=== PATIENT | female | born 1945 | race Caucasian/White ===

== ENCOUNTER 2018-11-24 14:48 | Observation (INO) ==
[2018-11-24] MEDS ORDERED: ONDANSETRON 4 MG/2 ML VIAL IV STA (15:26)
[2018-11-24] MEDS ORDERED: SODIUM CHLORIDE 0.9% 1,000 ML IV STA (15:26)
[2018-11-24 16:15] LABS: Basophils % 0.4 % (0.0-0.8); Eosinophils # 0.4 10*3/uL (0.0-0.87); Eosinophils % 4.2 % (0.00-10.9); Hemoglobin 12.4 GM/DL (12.0-16.0); Immature Granulocytes % 0.5 %; Immature Granulocytes Absolute 0.05 #; Lymphocytes # 1.9 10*3/uL (1.4-4.0); Lymphocytes % 18.4 % (21.3-54.2); Mean Corpuscular Hemoglobin 28 PG (27-34); Mean Corpuscular Volume 89.9 FL (87-102); Monocytes % 9.1 % (1.7-12.7); Neutrophils # 7.1 10*3/uL (1.4-7.4); Neutrophils % 67.4 % (38.7-73.9); Platelet Count 248 T/CUMM (130-400); Red Blood Count 4.45 MC/CUMM (3.8-5.5); Red Cell Distribution Width 13.7 % (9.3-17.3); White Blood Count 10.5 T/CUMM (4-12)
[2018-11-24 16:24] LABS: INR 0.9; PT Patient Result 10.1 SECS; Partial Thromboplastin Time 25.6 SECS (0-40)
[2018-11-24 16:33] LABS: Alanine Aminotransferase 28 U/L (13-56); Albumin 3.8 G/DL (3.4-5.0); Alkaline Phosphatase 95 U/L (45-117); Aspartate Amino Transferase 24 U/L (0-37); Bilirubin,Total < 0.39 MG/DL (0.2-1.0); Blood Urea Nitrogen 22 MG/DL (7-18); Calcium 8.9 MG/DL (8.5-10.1); Glucose 103 MG/DL (74-106); Osmolality,Calculated 279.5 MOS/KG (273-304); Potassium 4.1 MMOL/L (3.5-5.1); Sodium 139 MMOL/L (136-145); Total Protein 7.6 G/DL (6.4-8.3)
[2018-11-24] MEDS ORDERED: ACETAMINOPHEN 325 MG TABLET PO PRN (22:01)
[2018-11-24] MEDS ORDERED: PANTOPRAZOLE 40 MG VIAL IV STA (22:01)
[2018-11-24] MEDS ORDERED: ONDANSETRON 4 MG/2 ML VIAL IV PRN (22:01)
[2018-11-24 22:32] LABS: Basophils % 0.3 % (0.0-0.8); Eosinophils # 0.6 10*3/uL (0.0-0.87); Eosinophils % 5.1 % (0.00-10.9); Hematocrit 38.1 VOL% (35.7-47.0); Hemoglobin 11.8 GM/DL (12.0-16.0); Immature Granulocytes % 0.4 %; Immature Granulocytes Absolute 0.04 #; Lymphocytes # 2.7 10*3/uL (1.4-4.0); Lymphocytes % 25.3 % (21.3-54.2); Mean Corpuscular Hemoglobin 28 PG (27-34); Mean Corpuscular Volume 90.5 FL (87-102); Mean Platelet Volume 8.9 FL (9.6-12.0); Monocytes # 0.9 10*3/uL (0.11-0.8); Monocytes % 8.2 % (1.7-12.7); Neutrophils # 6.5 10*3/uL (1.4-7.4); Neutrophils % 60.7 % (38.7-73.9); Platelet Count 220 T/CUMM (130-400); Red Blood Count 4.21 MC/CUMM (3.8-5.5); Red Cell Distribution Width 13.9 % (9.3-17.3); White Blood Count 10.8 T/CUMM (4-12)
[2018-11-24] MEDS ORDERED: DEXTROSE 5% NACL 0.45% 1,000 ML IV SCH (23:55)
[2018-11-25] MEDS: LABETALOL 100 MG TABLET PO SCH ×3 (06:08→20:26)
[2018-11-25] MEDS: DEXTROSE 5% NACL 0.45% 1,000 ML IV SCH ×2 (08:25→22:32)
[2018-11-25 08:51] LABS: Basophils % 0.4 % (0.0-0.8); Eosinophils # 0.5 10*3/uL (0.0-0.87); Eosinophils % 5.8 % (0.00-10.9); Hematocrit 34.3 VOL% (35.7-47.0); Hemoglobin 10.7 GM/DL (12.0-16.0); Immature Granulocytes % 0.2 %; Immature Granulocytes Absolute 0.02 #; Lymphocytes # 2.1 10*3/uL (1.4-4.0); Lymphocytes % 22.3 % (21.3-54.2); Mean Corpuscular HGB Conc 31.2 GM/DL (32-36); Mean Corpuscular Hemoglobin 28 PG (27-34); Mean Corpuscular Volume 89.6 FL (87-102); Mean Platelet Volume 9.2 FL (9.6-12.0); Monocytes # 0.8 10*3/uL (0.11-0.8); Monocytes % 8.5 % (1.7-12.7); Neutrophils # 5.8 10*3/uL (1.4-7.4); Neutrophils % 62.8 % (38.7-73.9); Platelet Count 216 T/CUMM (130-400); Red Blood Count 3.83 MC/CUMM (3.8-5.5); Red Cell Distribution Width 13.6 % (9.3-17.3); White Blood Count 9.3 T/CUMM (4-12)
[2018-11-25] MEDS ORDERED: cloNIDine 0.1 MG TABLET PO ONE (09:00)
[2018-11-25 09:20] LABS: Calcium 8.2 MG/DL (8.5-10.1); Osmolality,Calculated 278.5 MOS/KG (273-304); Potassium 3.8 MMOL/L (3.5-5.1)
[2018-11-25] MEDS: SODIUM CHLORIDE 0.9% 1,000 ML IV SCH ×3 (09:55→22:32)
[2018-11-25] MEDS ORDERED: MAGNESIUM SULF RIDER 2 GM in PREMIX 1 EACH IV ONE (10:30)
[2018-11-25] MEDS ORDERED: BISACODYL 5 MG TABLET PO ONE (16:00)
[2018-11-25] MEDS: PANTOPRAZOLE 40 MG TABLET PO SCH (16:35)
[2018-11-25] MEDS: OXYBUTYNIN 5 MG TABLET PO SCH (16:35)
[2018-11-25] MEDS: SERTRALINE 100 MG TABLET PO SCH (16:35)
[2018-11-25] MEDS: ARIPiprazole 10 MG TABLET PO SCH (16:35)
[2018-11-25] MEDS ORDERED: POLYETHYLENE GLYCOL POWDER 255 GM BOTTLE PO ONE (18:00)
[2018-11-25] MEDS ORDERED: cloNIDine 0.1 MG TABLET PO SCH (21:00)
[2018-11-26 05:08] LABS: PT Patient Result 10.7 SECS
[2018-11-26 05:18] LABS: Basophils % 0.5 % (0.0-0.8); Eosinophils # 0.5 10*3/uL (0.0-0.87); Hematocrit 30.8 VOL% (35.7-47.0); Hemoglobin 9.5 GM/DL (12.0-16.0); Immature Granulocytes % 0.3 %; Immature Granulocytes Absolute 0.02 #; Lymphocytes # 2.1 10*3/uL (1.4-4.0); Lymphocytes % 28.6 % (21.3-54.2); Mean Corpuscular HGB Conc 30.8 GM/DL (32-36); Mean Corpuscular Hemoglobin 28 PG (27-34); Mean Corpuscular Volume 90.6 FL (87-102); Mean Platelet Volume 9.5 FL (9.6-12.0); Monocytes # 0.7 10*3/uL (0.11-0.8); Monocytes % 8.9 % (1.7-12.7); Neutrophils % 54.7 % (38.7-73.9); Platelet Count 202 T/CUMM (130-400); Red Cell Distribution Width 13.6 % (9.3-17.3); White Blood Count 7.3 T/CUMM (4-12)
[2018-11-26 05:28] LABS: Bilirubin,Total 0.7 MG/DL (0.2-1.0); Calcium 7.4 MG/DL (8.5-10.1); Total Protein 6.3 G/DL (6.4-8.3)
[2018-11-26 05:29] LABS: Osmolality,Calculated 280.3 MOS/KG (273-304); Potassium 3.6 MMOL/L (3.5-5.1)
[2018-11-26] MEDS: LEVOTHYROXINE 150 MCG TABLET PO SCH ×2 (06:15→08:09)
[2018-11-26] MEDS: SERTRALINE 100 MG TABLET PO SCH (08:05)
[2018-11-26] MEDS: OXYBUTYNIN 5 MG TABLET PO SCH (08:07)
[2018-11-26] MEDS: PANTOPRAZOLE 40 MG TABLET PO SCH (08:08)
[2018-11-26] MEDS: ARIPiprazole 10 MG TABLET PO SCH (08:08)
[2018-11-26] MEDS: SODIUM CHLORIDE 0.9% 1,000 ML IV SCH ×2 (08:11→16:13)
[2018-11-26] MEDS ORDERED: LIDOCAINE 2% 5 ML VIAL ONE (09:00)
[2018-11-26] MEDS ORDERED: PROPOFOL 200 MG/20 ML VIAL IV ONE (09:00)
[2018-11-26] MEDS: LABETALOL 100 MG TABLET PO SCH ×2 (14:15→20:44)
[2018-11-27] MEDS: SODIUM CHLORIDE 0.9% 1,000 ML IV SCH ×2 (02:29→16:13)
[2018-11-27] MEDS: LEVOTHYROXINE 150 MCG TABLET PO SCH (06:05)
[2018-11-27 06:35] LABS: Calcium 7.3 MG/DL (8.5-10.1); Potassium 3.9 MMOL/L (3.5-5.1)
[2018-11-27 08:48] LABS: Hematocrit 31.9 VOL% (35.7-47.0); Hemoglobin 9.9 GM/DL (12.0-16.0)
[2018-11-27] MEDS: ARIPiprazole 10 MG TABLET PO SCH (08:48)
[2018-11-27] MEDS: PANTOPRAZOLE 40 MG TABLET PO SCH (08:48)
[2018-11-27] MEDS: SERTRALINE 100 MG TABLET PO SCH (08:48)
[2018-11-27] MEDS: LABETALOL 100 MG TABLET PO SCH (08:49)
[2018-11-27] MEDS: OXYBUTYNIN 5 MG TABLET PO SCH (08:50)
[2018-11-27] MEDS ORDERED: amLODIPine 5 MG TABLET PO SCH (09:00)
[2018-11-27 16:03] VITALS: BP 147/62
[2018-11-27] MEDS ORDERED: amLODIPine 10 MG TABLET PO SCH (16:51)
[2018-11-27] MEDS ORDERED: amLODIPine 5 MG TABLET PO ONE (17:07)
== END 2018-11-27 17:05 | disposition home or self-care (01) ==
LOC: N.ED 14:48 → N.EDINP 14:48 → N.2E 21:18
PROVIDERS: ADMIT Emergency Medicine; ATTEND Internal Medicine

== ENCOUNTER 2020-07-19 19:58 | Observation (INO) ==
[2020-07-19 20:21] LABS: Basophils % 0.4 % (0.0-0.8); Eosinophils # 0.2 10*3/uL (0.0-0.87); Eosinophils % 2.8 % (0.00-10.9); Hematocrit 35.9 VOL% (35.7-47.0); Hemoglobin 11.6 GM/DL (12.0-16.0); Immature Granulocytes % 0.2 %; Immature Granulocytes Absolute 0.02 #; Lymphocytes # 1.8 10*3/uL (1.4-4.0); Lymphocytes % 21.4 % (21.3-54.2); Mean Corpuscular HGB Conc 32.3 GM/DL (32-36); Mean Platelet Volume 9.1 FL (9.6-12.0); Monocytes % 7.6 % (1.7-12.7); Neutrophils % 67.6 % (38.7-73.9); Platelet Count 221 T/CUMM (130-400); Red Blood Count 4.08 MC/CUMM (3.8-5.5); Red Cell Distribution Width 13.1 % (9.3-17.3); White Blood Count 8.3 T/CUMM (4-12)
[2020-07-19 20:46] LABS: Alanine Aminotransferase 29 U/L (13-56); Albumin 3.7 G/DL (3.4-5.0); Alkaline Phosphatase 70 U/L (45-117); Aspartate Amino Transferase 37 U/L (0-37); Bilirubin,Total < 0.39 MG/DL (0.2-1.0); Blood Urea Nitrogen 22 MG/DL (7-18); Estimated Glom Filtration Rate 39 ML/MIN; Glucose 91 MG/DL (74-106); Total Protein 7.1 G/DL (6.4-8.3)
[2020-07-19] MEDS ORDERED: ONDANSETRON 4 MG/2 ML VIAL IV STA (21:05)
[2020-07-19] MEDS ORDERED: ASPIRIN 325 MG TABLET PO STA (21:05)
[2020-07-19] MEDS ORDERED: CLOPIDOGREL 75 MG TABLET PO STA (22:31)
[2020-07-19] MEDS ORDERED: GLUCAGON 1 MG VIAL IM PRN (22:58)
[2020-07-19] MEDS ORDERED: ACETAMINOPHEN 325 MG TABLET PO PRN (22:58)
[2020-07-19] MEDS ORDERED: ONDANSETRON 4 MG/2 ML VIAL IV PRN (22:58)
[2020-07-19] MEDS ORDERED: DEXTROSE 50% 25 GM/50 ML SYRINGE IV PRN ×2 (22:58→23:04)
[2020-07-19] MEDS ORDERED: MORPHINE 4 MG/1 ML VIAL IV PRN (22:58)
[2020-07-19] MEDS: SODIUM CHLORIDE 0.9% 1,000 ML IV SCH (23:30)
[2020-07-20] MEDS: INSULIN REGULAR 100 UNIT/ML SUBCUT SCH ×3 (00:13→12:20)
[2020-07-20 04:45] LABS: Basophils % 0.4 % (0.0-0.8); Eosinophils # 0.3 10*3/uL (0.0-0.87); Eosinophils % 3.9 % (0.00-10.9); Hematocrit 32.5 VOL% (35.7-47.0); Hemoglobin 10.6 GM/DL (12.0-16.0); Immature Granulocytes % 0.1 %; Immature Granulocytes Absolute 0.01 #; Lymphocytes # 1.9 10*3/uL (1.4-4.0); Lymphocytes % 27.5 % (21.3-54.2); Mean Corpuscular HGB Conc 32.6 GM/DL (32-36); Mean Corpuscular Volume 88.3 FL (87-102); Mean Platelet Volume 9.4 FL (9.6-12.0); Neutrophils % 59.1 % (38.7-73.9); Platelet Count 204 T/CUMM (130-400); Red Blood Count 3.68 MC/CUMM (3.8-5.5)
[2020-07-20 05:18] LABS: Albumin 3.4 G/DL (3.4-5.0); Bilirubin,Total 0.6 MG/DL (0.2-1.0); Calcium 9.1 MG/DL (8.5-10.1); Risk Ratio 5.13; Total Protein 6.4 G/DL (6.4-8.3); VLDL CHOLESTEROL 25.6 MG/DL
[2020-07-20] MEDS ORDERED: PANTOPRAZOLE 40 MG TABLET PO SCH (09:00)
[2020-07-20] MEDS ORDERED: DOCUSATE SODIUM 100 MG CAPSULE PO SCH (09:00)
[2020-07-20] MEDS ORDERED: CLOPIDOGREL 75 MG TABLET PO SCH (09:00)
[2020-07-20 09:02] LABS: Bilirubin,Urine Negative (Negative); Blood, Urine Negative (Negative); Glucose,Urine (UA) Negative (Negative); Ketones,Urine Negative (Negative); Mucus,Urine Occasional /LPF (Occasional); Nitrite,Urine Negative (Negative); Protein,Urine Negative; RBC,Urine <1 /HPF (0-4); Urine Appearance CLEAR (Clear); Urine Color Yellow (Yellow); Urine Specific Gravity 1.008 (1.001-1.035); Urine Urobilinogen < 2.0 EU/DL (0.2-1.0); WBC,Urine 1 /HPF (0-6)
[2020-07-20 11:40] LABS: Barbiturates Screen,Urine Negative (Negative); Benzodiazepines Screen,Urine Negative (Negative); Cannabinoid Screen,Urine Negative (Negative); Opiate Screen,Urine Negative (Negative); Phencyclidine Screen,Urine Negative (Negative)
[2020-07-20] MEDS ORDERED: LABETALOL 100 MG TABLET PO SCH (14:18)
[2020-07-20] MEDS ORDERED: cloNIDine 0.1 MG TABLET PO SCH (14:18)
[2020-07-20] MEDS ORDERED: LABETALOL 100 MG TABLET ONE (14:22)
[2020-07-20] MEDS ORDERED: cloNIDine 0.1 MG TABLET ONE (14:22)
[2020-07-20] MEDS: SODIUM CHLORIDE 0.9% 1,000 ML IV SCH (14:30)
[2020-07-20 17:07] VITALS: BP 183/70
== END 2020-07-20 17:01 | disposition home or self-care (01) ==
LOC: N.EDINP 19:58 → N.ED 19:58 → N.EDINP 07-20 17:00
PROVIDERS: ADMIT Internal Medicine; ATTEND Internal Medicine

== ENCOUNTER 2020-07-24 17:55 | Observation (INO) ==
[2020-07-24 18:43] LABS: Basophils % 0.5 % (0.0-0.8); Eosinophils # 0.1 10*3/uL (0.0-0.87); Eosinophils % 1.8 % (0.00-10.9); Hematocrit 45.2 VOL% (35.7-47.0); Hemoglobin 14.6 GM/DL (12.0-16.0); Immature Granulocytes % 0.3 %; Immature Granulocytes Absolute 0.01 #; Lymphocytes # 0.6 10*3/uL (1.4-4.0); Lymphocytes % 16.5 % (21.3-54.2); Mean Corpuscular HGB Conc 32.3 GM/DL (32-36); Mean Corpuscular Volume 88.3 FL (87-102); Mean Platelet Volume 9.8 FL (9.6-12.0); Monocytes % 12.6 % (1.7-12.7); Neutrophils % 68.3 % (38.7-73.9); Platelet Count 132 T/CUMM (130-400); Red Blood Count 5.12 MC/CUMM (3.8-5.5); Red Cell Distribution Width 13.1 % (9.3-17.3); White Blood Count 3.8 T/CUMM (4-12)
[2020-07-24 18:50] LABS: INR 1.1; PT Patient Result 11.3 SECS (9.8-11.9); Partial Thromboplastin Time 29.8 SECS (23.9-33.8)
[2020-07-24 18:57] LABS: Calcium 8.6 MG/DL (8.5-10.1)
[2020-07-24] MEDS ORDERED: ONDANSETRON 4 MG/2 ML VIAL IV PRN (20:20)
[2020-07-24] MEDS ORDERED: DEXTROSE 50% 25 GM/50 ML VIAL IV PRN (20:20)
[2020-07-24] MEDS ORDERED: GLUCAGON 1 MG VIAL IM PRN (20:20)
[2020-07-24] MEDS ORDERED: DEXTROSE 50% 25 GM/50 ML SYRINGE IV PRN (20:34)
[2020-07-24 21:20] LABS: Bacteria,Urine Occasional /HPF (Few); Bilirubin,Urine Negative (Negative); Blood, Urine Negative (Negative); Glucose,Urine (UA) Negative (Negative); Hyaline Casts,Urine 1 /LPF (0-3); Ketones,Urine Negative (Negative); Nitrite,Urine Negative (Negative); Protein,Urine Negative; RBC,Urine 3 /HPF (0-4); Urine Appearance CLEAR (Clear); Urine Color Yellow (Yellow); Urine Specific Gravity 1.012 (1.001-1.035); Urine Urobilinogen < 2.0 EU/DL (0.2-1.0); WBC,Urine 88 /HPF (0-6)
[2020-07-25] MEDS: INSULIN REGULAR 100 UNIT/ML SUBCUT SCH ×5 (00:55→20:32)
[2020-07-25] MEDS: PANTOPRAZOLE 40 MG TABLET PO SCH (10:51)
[2020-07-25] MEDS ORDERED: ZALEPLON 5 MG CAPSULE PO PRN (12:08)
[2020-07-25] MEDS: OXYBUTYNIN 5 MG TABLET PO SCH ×2 (13:02→20:31)
[2020-07-25] MEDS: CLOPIDOGREL 75 MG TABLET PO SCH (13:02)
[2020-07-25] MEDS: LEVOTHYROXINE 150 MCG TABLET PO SCH (13:02)
[2020-07-25] MEDS ORDERED: ZINC SULFATE 220 MG CAPSULE PO SCH (13:30)
[2020-07-25] MEDS: hydrALAZINE 25 MG TABLET PO SCH (17:20)
[2020-07-26 05:56] LABS: Basophils % 0.4 % (0.0-0.8); Eosinophils # 0.1 10*3/uL (0.0-0.87); Hematocrit 36.7 VOL% (35.7-47.0); Hemoglobin 11.9 GM/DL (12.0-16.0); Immature Granulocytes % 0.4 %; Immature Granulocytes Absolute 0.02 #; Lymphocytes # 1.6 10*3/uL (1.4-4.0); Lymphocytes % 30.9 % (21.3-54.2); Mean Corpuscular HGB Conc 32.4 GM/DL (32-36); Mean Corpuscular Volume 88.6 FL (87-102); Mean Platelet Volume 9.8 FL (9.6-12.0); Monocytes % 16.4 % (1.7-12.7); Neutrophils % 49.9 % (38.7-73.9); Platelet Count 166 T/CUMM (130-400); Red Blood Count 4.14 MC/CUMM (3.8-5.5); Red Cell Distribution Width 13.2 % (9.3-17.3)
[2020-07-26 06:20] LABS: Alanine Aminotransferase 24 U/L (13-56); Albumin 3.3 G/DL (3.4-5.0); Alkaline Phosphatase 66 U/L (45-117); Aspartate Amino Transferase 31 U/L (0-37); Bilirubin,Total < 0.39 MG/DL (0.2-1.0); Blood Urea Nitrogen 18 MG/DL (7-18); Calcium 8.2 MG/DL (8.5-10.1); Estimated Glom Filtration Rate 42 ML/MIN; Glucose 99 MG/DL (74-106); HDL Cholesterol 43 MG/DL (40-60); Osmolality,Calculated 276.7 MOS/KG (273-304); Risk Ratio 4.84; Total Protein 7.4 G/DL (6.4-8.3); Triglycerides 104 MG/DL (2-150); VLDL CHOLESTEROL 20.8 MG/DL
[2020-07-26] MEDS: LEVOTHYROXINE 150 MCG TABLET PO SCH (06:24)
[2020-07-26 07:01] LABS: Eosinophils 2 % (0-10); Lymphocytes 25 % (20-55); Platelet Estimate Normal; Segmented Neutrophils 55 % (50-85); Total Cells Counted 100
[2020-07-26] MEDS: INSULIN REGULAR 100 UNIT/ML SUBCUT SCH ×4 (09:23→22:21)
[2020-07-26] MEDS: SERTRALINE 100 MG TABLET PO SCH (09:26)
[2020-07-26] MEDS: CALCIUM (CARBONATE)/VITAMIN D 600 MG-400 UNIT TABLET PO SCH (09:26)
[2020-07-26] MEDS: PANTOPRAZOLE 40 MG TABLET PO SCH (09:26)
[2020-07-26] MEDS: MULTIVITAMIN (CENTRUM) TABLET PO SCH (09:26)
[2020-07-26] MEDS: CLOPIDOGREL 75 MG TABLET PO SCH (09:26)
[2020-07-26] MEDS: SIMVASTATIN 10 MG TABLET PO SCH (09:26)
[2020-07-26] MEDS: hydrALAZINE 25 MG TABLET PO SCH ×2 (09:26→17:38)
[2020-07-26] MEDS: OXYBUTYNIN 5 MG TABLET PO SCH ×2 (09:27→22:21)
[2020-07-26] MEDS: DOCUSATE SODIUM 100 MG CAPSULE PO SCH (22:21)
[2020-07-27 06:21] LABS: Basophils % 0.6 % (0.0-0.8); Eosinophils # 0.2 10*3/uL (0.0-0.87); Eosinophils % 3.7 % (0.00-10.9); Hematocrit 37.4 VOL% (35.7-47.0); Hemoglobin 12.2 GM/DL (12.0-16.0); Immature Granulocytes % 0.4 %; Immature Granulocytes Absolute 0.02 #; Lymphocytes # 1.9 10*3/uL (1.4-4.0); Lymphocytes % 39.1 % (21.3-54.2); Mean Corpuscular HGB Conc 32.6 GM/DL (32-36); Mean Corpuscular Volume 88.2 FL (87-102); Mean Platelet Volume 9.7 FL (9.6-12.0); Monocytes % 13.7 % (1.7-12.7); Neutrophils % 42.5 % (38.7-73.9); Platelet Count 178 T/CUMM (130-400); Red Blood Count 4.24 MC/CUMM (3.8-5.5); Red Cell Distribution Width 13.3 % (9.3-17.3); White Blood Count 4.8 T/CUMM (4-12)
[2020-07-27] MEDS: LEVOTHYROXINE 150 MCG TABLET PO SCH (06:24)
[2020-07-27 06:49] LABS: Anisocytosis 1+; Band Neutrophils 13 % (0-10); Eosinophils 8 % (0-10); Lymphocytes 36 % (20-55); Platelet Estimate Normal; Segmented Neutrophils 25 % (50-85); Total Cells Counted 100
[2020-07-27] MEDS: INSULIN REGULAR 100 UNIT/ML SUBCUT SCH ×4 (07:51→20:55)
[2020-07-27] MEDS: SERTRALINE 100 MG TABLET PO SCH (09:40)
[2020-07-27] MEDS: DOCUSATE SODIUM 100 MG CAPSULE PO SCH ×2 (09:40→20:54)
[2020-07-27] MEDS: CLOPIDOGREL 75 MG TABLET PO SCH (09:40)
[2020-07-27] MEDS: hydrALAZINE 25 MG TABLET PO SCH ×2 (09:40→17:40)
[2020-07-27] MEDS: MULTIVITAMIN (CENTRUM) TABLET PO SCH (09:40)
[2020-07-27] MEDS: OXYBUTYNIN 5 MG TABLET PO SCH ×2 (09:40→20:55)
[2020-07-27] MEDS: CALCIUM (CARBONATE)/VITAMIN D 600 MG-400 UNIT TABLET PO SCH (09:40)
[2020-07-27] MEDS: PANTOPRAZOLE 40 MG TABLET PO SCH (09:40)
[2020-07-27] MEDS ORDERED: methylPREDNISolone SOD SUC 40 MG/1 ML VIAL IV SCH (18:00)
[2020-07-27] MEDS: CARBIDOPA/LEVODOPA 25-100 MG TABLET PO SCH (21:46)
[2020-07-28 06:13] LABS: Calcium 8.3 MG/DL (8.5-10.1); Osmolality,Calculated 276.8 MOS/KG (273-304)
[2020-07-28] MEDS: LEVOTHYROXINE 150 MCG TABLET PO SCH (06:14)
[2020-07-28] MEDS: INSULIN REGULAR 100 UNIT/ML SUBCUT SCH ×4 (08:25→20:37)
[2020-07-28] MEDS: SIMVASTATIN 10 MG TABLET PO SCH (09:25)
[2020-07-28] MEDS: MULTIVITAMIN (CENTRUM) TABLET PO SCH (09:25)
[2020-07-28] MEDS: PANTOPRAZOLE 40 MG TABLET PO SCH (09:25)
[2020-07-28] MEDS: CALCIUM (CARBONATE)/VITAMIN D 600 MG-400 UNIT TABLET PO SCH (09:25)
[2020-07-28] MEDS: hydrALAZINE 25 MG TABLET PO SCH ×2 (09:25→17:08)
[2020-07-28] MEDS: CLOPIDOGREL 75 MG TABLET PO SCH (09:25)
[2020-07-28] MEDS: OXYBUTYNIN 5 MG TABLET PO SCH ×2 (09:25→20:38)
[2020-07-28] MEDS: CARBIDOPA/LEVODOPA 25-100 MG TABLET PO SCH ×2 (09:25→20:38)
[2020-07-28] MEDS: DOCUSATE SODIUM 100 MG CAPSULE PO SCH ×2 (09:25→20:38)
[2020-07-28] MEDS: SERTRALINE 100 MG TABLET PO SCH (09:25)
[2020-07-28] MEDS: ACETAMINOPHEN 325 MG TABLET PO PRN (20:38)
[2020-07-29] MEDS: LEVOTHYROXINE 150 MCG TABLET PO SCH (05:59)
[2020-07-29 06:30] LABS: Osmolality,Calculated 276.8 MOS/KG (273-304)
[2020-07-29] MEDS: INSULIN REGULAR 100 UNIT/ML SUBCUT SCH ×4 (07:49→20:01)
[2020-07-29] MEDS: hydrALAZINE 25 MG TABLET PO SCH ×2 (08:33→17:00)
[2020-07-29] MEDS: MULTIVITAMIN (CENTRUM) TABLET PO SCH (08:34)
[2020-07-29] MEDS: CALCIUM (CARBONATE)/VITAMIN D 600 MG-400 UNIT TABLET PO SCH (08:34)
[2020-07-29] MEDS: CARBIDOPA/LEVODOPA 25-100 MG TABLET PO SCH ×2 (08:34→20:14)
[2020-07-29] MEDS: SERTRALINE 100 MG TABLET PO SCH (08:34)
[2020-07-29] MEDS: DOCUSATE SODIUM 100 MG CAPSULE PO SCH ×2 (08:34→20:13)
[2020-07-29] MEDS: CLOPIDOGREL 75 MG TABLET PO SCH (08:34)
[2020-07-29] MEDS: PANTOPRAZOLE 40 MG TABLET PO SCH (08:34)
[2020-07-29] MEDS: OXYBUTYNIN 5 MG TABLET PO SCH ×2 (08:34→20:14)
[2020-07-29] MEDS: ACETAMINOPHEN 325 MG TABLET PO PRN (20:14)
[2020-07-30] MEDS: LEVOTHYROXINE 150 MCG TABLET PO SCH (06:03)
[2020-07-30] MEDS: SIMVASTATIN 10 MG TABLET PO SCH (09:13)
[2020-07-30] MEDS: MULTIVITAMIN (CENTRUM) TABLET PO SCH (09:13)
[2020-07-30] MEDS: SERTRALINE 100 MG TABLET PO SCH (09:13)
[2020-07-30] MEDS: INSULIN REGULAR 100 UNIT/ML SUBCUT SCH ×4 (09:13→21:32)
[2020-07-30] MEDS: OXYBUTYNIN 5 MG TABLET PO SCH ×2 (09:14→20:25)
[2020-07-30] MEDS: PANTOPRAZOLE 40 MG TABLET PO SCH (09:14)
[2020-07-30] MEDS: CARBIDOPA/LEVODOPA 25-100 MG TABLET PO SCH ×2 (09:14→20:25)
[2020-07-30] MEDS: DOCUSATE SODIUM 100 MG CAPSULE PO SCH ×2 (09:14→20:25)
[2020-07-30] MEDS: CALCIUM (CARBONATE)/VITAMIN D 600 MG-400 UNIT TABLET PO SCH (09:14)
[2020-07-30] MEDS: hydrALAZINE 25 MG TABLET PO SCH ×2 (09:14→16:05)
[2020-07-30] MEDS: CLOPIDOGREL 75 MG TABLET PO SCH (09:14)
[2020-07-31] MEDS: hydrALAZINE 25 MG TABLET PO SCH ×2 (09:16→16:32)
[2020-07-31] MEDS: LEVOTHYROXINE 150 MCG TABLET PO SCH (09:16)
[2020-07-31] MEDS: CALCIUM (CARBONATE)/VITAMIN D 600 MG-400 UNIT TABLET PO SCH (09:16)
[2020-07-31] MEDS: DOCUSATE SODIUM 100 MG CAPSULE PO SCH ×2 (09:16→21:12)
[2020-07-31] MEDS: CARBIDOPA/LEVODOPA 25-100 MG TABLET PO SCH ×2 (09:16→21:12)
[2020-07-31] MEDS: CLOPIDOGREL 75 MG TABLET PO SCH (09:16)
[2020-07-31] MEDS: SERTRALINE 100 MG TABLET PO SCH (09:17)
[2020-07-31] MEDS: MULTIVITAMIN (CENTRUM) TABLET PO SCH (09:17)
[2020-07-31] MEDS: OXYBUTYNIN 5 MG TABLET PO SCH ×2 (09:17→21:12)
[2020-07-31] MEDS: INSULIN REGULAR 100 UNIT/ML SUBCUT SCH ×4 (09:17→21:12)
[2020-07-31] MEDS: PANTOPRAZOLE 40 MG TABLET PO SCH (09:17)
[2020-08-01] MEDS: LEVOTHYROXINE 150 MCG TABLET PO SCH (06:00)
[2020-08-01 06:58] LABS: Albumin 3.3 G/DL (3.4-5.0); Bilirubin,Total 1.2 MG/DL (0.2-1.0); Calcium 8.8 MG/DL (8.5-10.1); Total Protein 7.3 G/DL (6.4-8.3)
[2020-08-01] MEDS: DOCUSATE SODIUM 100 MG CAPSULE PO SCH ×2 (09:13→20:07)
[2020-08-01] MEDS: SERTRALINE 100 MG TABLET PO SCH (09:13)
[2020-08-01] MEDS: hydrALAZINE 25 MG TABLET PO SCH ×2 (09:14→16:35)
[2020-08-01] MEDS: PANTOPRAZOLE 40 MG TABLET PO SCH (09:14)
[2020-08-01] MEDS: INSULIN REGULAR 100 UNIT/ML SUBCUT SCH ×4 (09:14→23:41)
[2020-08-01] MEDS: OXYBUTYNIN 5 MG TABLET PO SCH ×2 (09:14→20:07)
[2020-08-01] MEDS: MULTIVITAMIN (CENTRUM) TABLET PO SCH (09:14)
[2020-08-01] MEDS: CARBIDOPA/LEVODOPA 25-100 MG TABLET PO SCH ×2 (09:14→20:07)
[2020-08-01] MEDS: CALCIUM (CARBONATE)/VITAMIN D 600 MG-400 UNIT TABLET PO SCH (09:14)
[2020-08-01] MEDS: CLOPIDOGREL 75 MG TABLET PO SCH (09:14)
[2020-08-02] MEDS: LEVOTHYROXINE 150 MCG TABLET PO SCH (05:55)
[2020-08-02] MEDS: INSULIN REGULAR 100 UNIT/ML SUBCUT SCH ×4 (08:09→20:27)
[2020-08-02] MEDS: CARBIDOPA/LEVODOPA 25-100 MG TABLET PO SCH ×2 (09:46→20:10)
[2020-08-02] MEDS: DOCUSATE SODIUM 100 MG CAPSULE PO SCH ×2 (09:46→20:10)
[2020-08-02] MEDS: SERTRALINE 100 MG TABLET PO SCH (09:46)
[2020-08-02] MEDS: hydrALAZINE 25 MG TABLET PO SCH ×2 (09:47→17:49)
[2020-08-02] MEDS: MULTIVITAMIN (CENTRUM) TABLET PO SCH (09:47)
[2020-08-02] MEDS: SIMVASTATIN 10 MG TABLET PO SCH (09:47)
[2020-08-02] MEDS: OXYBUTYNIN 5 MG TABLET PO SCH ×2 (09:47→20:10)
[2020-08-02] MEDS: CLOPIDOGREL 75 MG TABLET PO SCH (09:47)
[2020-08-02] MEDS: PANTOPRAZOLE 40 MG TABLET PO SCH (09:47)
[2020-08-02] MEDS: CALCIUM (CARBONATE)/VITAMIN D 600 MG-400 UNIT TABLET PO SCH (09:48)
[2020-08-03] MEDS: LEVOTHYROXINE 150 MCG TABLET PO SCH (06:29)
[2020-08-03] MEDS: INSULIN REGULAR 100 UNIT/ML SUBCUT SCH (08:35)
[2020-08-03 08:48] VITALS: BP 149/56
[2020-08-03] MEDS: DOCUSATE SODIUM 100 MG CAPSULE PO SCH (09:42)
[2020-08-03] MEDS: MULTIVITAMIN (CENTRUM) TABLET PO SCH (09:42)
[2020-08-03] MEDS: CARBIDOPA/LEVODOPA 25-100 MG TABLET PO SCH (09:42)
[2020-08-03] MEDS: CLOPIDOGREL 75 MG TABLET PO SCH (09:43)
[2020-08-03] MEDS: hydrALAZINE 25 MG TABLET PO SCH (09:43)
[2020-08-03] MEDS: SERTRALINE 100 MG TABLET PO SCH (09:43)
[2020-08-03] MEDS: OXYBUTYNIN 5 MG TABLET PO SCH (09:43)
[2020-08-03] MEDS: CALCIUM (CARBONATE)/VITAMIN D 600 MG-400 UNIT TABLET PO SCH (09:44)
[2020-08-03] MEDS: PANTOPRAZOLE 40 MG TABLET PO SCH (09:44)
== END 2020-08-03 11:13 | disposition home or self-care (01) ==
LOC: N.EDINP 17:55 → N.ED 17:55 → SUATTDRO 20:20 → N.EDINP 07-25 00:05 → N.2E 07-25 00:46
PROVIDERS: ADMIT Internal Medicine; ATTEND Internal Medicine